=== PATIENT | male | born 1960 | race Caucasian/White ===

== ENCOUNTER 2021-04-09 16:48 | Emergency (ER) | payer MEDICAID ==
[~2021-04-09] VITALS: Ht 188 cm; Wt 79.9 kg
--- NOTE | 2021-04-09 17:42 | PHYS DOC ---
Adult General Chief Complaint Chief Complaint: WEAKNESS/GENERALIZED HPI HPI Patient is a 60-year-old male presenting via POV for weakness and fatigue. This is an acute on chronic issue. States he has been previously residing in [place] where he has been receiving all of his medical care but recently relocated to [facility] to live with his parents. Medical history is most pertinent for stage IV metastatic lung cancer which she reports is non-small cell in etiology. He has a right-sided chest port and has received chemotherapy only with last treatment in October and remains on oral " cancer medication". Presents today as he is been more fatigued than usual with nonspecific chills and difficulty getting warm. He is concerned because last time he felt like this approximately 1 year prior he was found to be anemic and received a total of 5 units pRBCs. States he never received an endoscopy with no obvious blood source found and stated that because was reported to be due to chronic disease. He is unvaccinated against COVID-19 (EMANUEL BYRD DO) Review of Systems Review of Systems Fourteen body systems of review of systems have been reviewed. See HPI for pertinent positives and negative responses, other vega all other systems are negative, non-pertinent or non-contributory (EMANUEL BYRD DO) Allergies Allergies Allergies Coded Allergies Type Severity Reaction Last Updated Verified No Known Drug Allergies 04/09/21 No (EMANUEL BYRD DO) Physical Exam Physical Exam Constitutional: Well developed, thin and appears nourished, no acute distress, non-toxic appearance. HENT: Normocephalic, atraumatic, bilateral external ears normal, oropharynx moist, no oral exudates, nose normal. Eyes: PERRLA, EOMI, conjunctiva normal, no discharge. Neck: Normal range of motion, no tenderness, supple, no stridor. Cardiovascular: Heart rate regular, sinus rhythm, no murmurs rubs or gallops right upper outer chest wall port present Lungs & Thorax: Bilateral breath sounds clear to auscultation Abdomen: Bowel sounds normal, soft, no tenderness, no masses, no pulsatile masses. Nonsurgical abdomen, no peritoneal signs Skin: Warm, dry, no erythema, no rash. Back: No tenderness, no CVA tenderness. Extremities: No tenderness, no cyanosis, no clubbing, ROM intact, no edema. Neurologic: Alert and oriented X 3, grossly normal motor & sensory function, no focal deficits noted. Psychologic: Affect normal, judgement normal, mood normal. (EMANUEL BYRD DO) Current Patient Data Vital Signs Vital Signs Date Time Temp Pulse Resp B/P (MAP) Pulse Ox O2 Delivery O2 Flow Rate FiO2 04/09/21 17:05 98.2 94 18 133/92 (106) 98 Room Air Vital Signs Date Time Temp Pulse Resp B/P (MAP) Pulse Ox O2 Delivery O2 Flow Rate FiO2 04/09/21 20:48 18 98 04/09/21 20:10 102 148/55 (86) Room Air 04/09/21 17:05 98.2 (EMANUEL BYRD DO) EKG EKG [] (EMANUEL BYRD DO) Radiology/Procedures Radiology/Procedures [] (EMANUEL BYRD DO) Heart Score Risk Factors: Risk Factors: DM, Current or recent (<one month) smoker, HTN, HLP, family history of CAD, obesity. Risk Scores: Risk Factors: DM, Current or recent (<one month) smoker, HTN, HLP, family history of CAD, obesity. (EMANUEL BYRD DO) C/O Chest Pain: No (ADRIANNA MOREL MD) Course & Med Decision Making Course & Med Decision Making ABCs unremarkable HPI and physical exam nonconcerning for any emergent or surgical issues Initial work-up started in an unvaccinated against COVID-19 individual presenting with fatigue and lethargy and concern for potential anemia At this time in care, comprehensive signout given to oncoming physician. Please defer to Dr. Morel's documentation regarding future care of patient while in ER setting (EMANUEL BYRD DO) Course & Med Decision Making Patient care handed off to me at checkout pending labs and imaging. Patient is a stage IV lung cancer patient, with leukopenia, anemia and SIRS criteria. Chest x-ray suspect ill-defined bilateral nodular opacities suspicious for infection. Order to complete sepsis work-up on patient and plan to admit. Patient and are here stating that they are from [place], and are leaving soon and would not stay in the hospital. Both myself and the ED nurse had long discussions with family about staying in the hospital for continued work-up as it is indicated. Stated that if he did leave without further treatment and probable admission to the hospital he had a high risk of becoming seriously ill, with worsening symptoms, which could lead to a long hospitalization, ICU stays, disability and . Family was grateful, verbalized understanding and stated that they were just going to go home and go back to [place] where he is getting treated at [facility]. Advised once again that this would probably not be the best course of action and would be AGAINST MEDICAL ADVICE. Gave patient nausea medicine, pain medicine and antibiotics to take at home. Advised on symptom control. Gave strict return return precautions to the ED. (ADRIANNA MOREL MD) Dragon Disclaimer Dragon Disclaimer This electronic medical record was generated, in whole or in part, using a voice recognition dictation system. (EMANUEL BYRD DO) Departure Departure: Impression: Primary Impression: Sepsis Additional Impressions: Lung cancer Leukopenia Anemia Pneumonia Disposition: LEFT AGAINST MEDICAL ADVICE Condition: GUARDED Referrals: PCP,ARRON (PCP) KEVYN SIMMONS MD Patient Instructions: Sepsis, Adult Additional Instructions: Thank you for coming into the emergency department tonight and allowing us to take care of you. Please read the attached information carefully to go back over things we discussed. Please take your antibiotics as prescribed and until gone. Please take your nausea medicine as discussed over the next couple of days to allow oral intake of fluids and food. As we discussed, it was very important that you stay in the emergency department for further evaluation and treatment as you most likely had a blood infection secondary to your pneumonia and given your cancer and immunocompromise state. You and your verbalized understanding and stated you want to go home. We discussed serious complications such as worsening symptoms, worsening illness and infection, return to the hospital and ICU stay, disability and . You and your verbalized understanding of this after discussing this with both the nurse and myself but chose to go home AGAINST MEDICAL ADVICE. Scripts Levofloxacin (LEVOFLOXACIN) 500 Mg Tablet 1 TAB PO DAILY for PNA for 7 Days, #7 TAB Prov: ADRIANNA MOREL MD 04/09/21 Problem Qualifiers EMANUEL BYRD DO Apr 09, 2021 17:42 ADRIANNA MOREL MD Apr 09, 2021 19:43
--- NOTE | 2021-04-09 18:19 | EKG ---
[address] [address] Test Date: 2021-04-09 Test Time: 17:53:20 Pat Name: BALTAZAR PINTO Department: Room: Gender: M Geospatial Specialist: IZZY : 1960 Requested By: EMANUEL BYRD Order Number: [id number] Reading MD: Griffin Malik MD Measurements Intervals [place] Rate: 77 P: 43 KS: 140 QRS: 28 QRSD: 64 T: 68 QT: 362 QTc: 411 Interpretive Statements SINUS RHYTHM Electronically Signed On 04-10-2021 20:42:05 CALCINE FURNACE TENDER by Griffin Malik MD
[2021-04-09 18:42] LABS: BASO % 1 % (0-3); EOS # 0.1 x10^3/uL (0.0-0.7); EOS % 3 % (0-3); HEMATOCRIT 28.8 % (39.0-53.0); HEMOGLOBIN 9.6 g/dL (13.0-17.5); LYMPH % 33 % (24-48); MEAN CORPUSCULAR HEMOGLOBIN 35 pg (25-35); MEAN CORPUSCULAR HGB CONC 33 g/dL (31-37); MEAN CORPUSCULAR VOLUME 104 fL (79-100); MONO # 0.3 x10^3/uL (0.0-1.1); MONO % 10 % (0-9); NEUT # 1.5 x10^3uL (1.8-7.7); NEUT % 53 % (31-73); PLATELET COUNT 186 x10^3/uL (140-400); RED BLOOD COUNT 2.77 x10^6/uL (4.30-5.70); RED CELL DISTRIBUTION WIDTH 15.8 % (11.5-14.5); WHITE BLOOD COUNT 2.9 x10^3/uL (4.0-11.0)
[2021-04-09 18:48] LABS: CALCIUM 7.4 mg/dL (8.5-10.1); CREATININE 1.6 mg/dL (0.7-1.3); GFR 44.3; POTASSIUM 3.9 mmol/L (3.5-5.1)
--- NOTE | 2021-04-09 18:56 | RAD ---
EXAM: XR CHEST 1V 04/09/2021 5:40 PM CLINICAL INDICATION: Chills, fatigue COMPARISON: None TECHNIQUE: AP upright view of the chest FINDINGS: There is a right chest wall port with tip overlying the superior vena cava. The heart is n ormal in size. Lungs are adequately expanded. Suspect ill-defined nodular opacities in the peripheral lungs. No pleural effusion or pneumothorax. Chronic deformity of the left proximal humerus. Degenera tive joint disease of the glenohumeral joints. Old left clavicular fracture. IMPRESSION: Suspect ill-defined bilateral nodular opacities, suspicious for infection. Recommend fol low-up after treatment to ensure resolution. Electronically signed by: Priti Man MD (04/09/2021 6:53 PM) [id number]
[2021-04-09 19:06] LABS: INFLUENZA A PATIENT NEGATIVE (NEGATIVE); INFLUENZA B PATIENT NEGATIVE (NEGATIVE)
[2021-04-09] MEDS ORDERED: LEVO500T9 PO (19:42)
[2021-04-09] MEDS ORDERED: ACETAMINOPHEN/CODEINE 300/30MG 4TABLET STARTPACK. PO ONE (19:45)
[2021-04-09] MEDS ORDERED: oxyCODONE/APAP 5/325 1 TAB TABLET PO ONE (19:45)
[2021-04-09] MEDS ORDERED: ONDANSETRON 4MG ODT 4TABLET STARTPACK. PO ONE (19:45)
[2021-04-09] MEDS ORDERED: ONDANSETRON ODT 4 MG TAB.RAPDIS PO ONE (19:45)
[2021-04-09] MEDS ORDERED: levoFLOXacin 500 MG TABLET PO ONE (19:45)
[2021-04-09 20:10] VITALS: BP 148/55
[2021-04-09 20:28] LABS: C REACTIVE PROTEIN 3.4 mg/L (0-3.3); MAGNESIUM 1.7 mg/dL (1.8-2.4)
== END 2021-04-09 20:10 | disposition left against medical advice (07) ==
LOC: ER 16:48
DX: A41.9 Sepsis, unspecified organism (principal); D72.819 Decreased white blood cell count, unspecified; D64.9 Anemia, unspecified; J18.9 Pneumonia, unspecified organism; C34.90 Malignant neoplasm of unspecified part of unspecified bronchus or lung
CPT/HCPCS: 36415; 71045; 80048; 83735; 84484; 85025; 86140; 93005; 99285; Q0162; 87428

== ENCOUNTER 2021-04-16 19:24 | Emergency (ER) | payer MEDICAID ==
[~2021-04-16] VITALS: Ht 193 cm; Wt 79.0 kg
[~2021-04-16 19:24] MED LIST: LEVO500T9 PO
--- NOTE | 2021-04-16 19:44 | PHYS DOC ---
Past History Additional Past Medical Histor: lung cancer, ascities (ANTOINETTE HERNANDEZ APRN) Past Surgical History: Other Additional Past Surgical Histo: left knee, port placed, multiple ascities drainage (ANTOINETTE HERNANDEZ APRN) Alcohol Use: None (ANTOINETTE HERNANDEZ APRN) Adult General HPI HPI Limited HPI related to patient unable to communicate, HPI given by transporting application architect manager report Patient is a 60-year-old male who presents to the emergency department via EMS with reports patient has been having garbled speech since 1500 today. It is reported patient fell 10 days ago hitting his head, it is uncertain if patient had medical evaluation at that time. Patient is here visiting parents from [place]. Patient has history of lung cancer and is on Xarelto, unknown if other past medical history exists. Patient apparently uses a walker to ambulate. It was noted today that the patient stumbled forward and caught himself with his hands, this was witnessed, it was witnessed he did not hit his head. It was noted at that time patient answered questions and carried on conversations with an comprehensible sounds and speech. It is also reported the patient tested positive for the COVID-19 virus this past Thursday. No other history is known. (ANTOINETTE HERNANDEZ APRN) Review of Systems Review of Systems Limited ROS related to patient incomprehensible sounds, see HPI. (ANTOINETTE HERNANDEZ APRN) Allergies Allergies Allergies Coded Allergies Type Severity Reaction Last Updated Verified No Known Drug Allergies 04/09/21 No (ANTOINETTE HERNANDEZ APRN) Physical Exam Physical Exam Constitutional: Well developed, well nourished, no acute distress, non-toxic appearance. 60-year-old male in no apparent distress. HENT: Normocephalic, atraumatic. Oropharynx moist, pink, no deep tissue infectious process appreciated, bilateral TMs intact, within normal limits, no lymphadenopathy of the head or neck appreciated. No moreno sign, no raccoon eyes. No drooling, no trismus, patient speaking in normal voice tones however making incomprehensible words/sounds. Patient does follow commands. Eyes: Conjunctiva normal, no discharge. Satisfactory 6 cardinal eye movements. Neck: Normal range of motion, no stridor. No midline spinal tenderness. Cardiovascular: No cyanosis appreciated, distal cap refill less than 2 seconds. Heart sounds S1-S2, regular rate and rhythm. Lungs & Thorax: Patient is in no respiratory distress, no audible adventitious lung sounds appreciated. Lung sounds clear to auscultation all lung alas. Abdomen: Nontender, no abnormalities noted. Abdomen flat, no masses, no megaly, normal bowel sounds all 4 quadrants. Skin: Warm, dry, no erythema, no rash. Back: No tenderness, no deformities. Extremities: No tenderness, no cyanosis, no clubbing, ROM intact, no edema. Neurologic: Alert, orientation unable to assess related to patient answering incomprehensible sounds/words, patient does follow commands. Psychologic: Unable to assess psychologic status related to patient answering and incomprehensible sounds, patient does not seem to be upset or become agitated when he does not answer in words it makes sense. Patient does answer yes and no otherwise unable to articulate words. (ANTOINETTE HERNANDEZ APRN) Current Patient Data Lab Results Laboratory Tests Test 04/16/21 19:41 04/16/21 19:54 04/16/21 20:36 04/16/21 20:40 White Blood Count 3.7 x10^3/uL Red Blood Count 2.99 x10^6/uL Hemoglobin 10.3 g/dL Hematocrit 30.8 % Mean Corpuscular Volume 103 fL Mean Corpuscular Hemoglobin 34 pg Mean Corpuscular Hemoglobin Concent 34 g/dL Red Cell Distribution Width 15.3 % Platelet Count 167 x10^3/uL Neutrophils (%) (Auto) 62 % Lymphocytes (%) (Auto) 26 % Monocytes (%) (Auto) 10 % Eosinophils (%) (Auto) 1 % Basophils (%) (Auto) 1 % Neutrophils # (Auto) 2.3 x10^3uL Lymphocytes # (Auto) 1.0 x10^3/uL Monocytes # (Auto) 0.4 x10^3/uL Eosinophils # (Auto) 0.1 x10^3/uL Basophils # (Auto) 0.0 x10^3/uL Prothrombin Time 13.3 SEC Prothromb Time International Ratio 1.3 Activated Partial Thromboplast Time 30 SEC Sodium Level 134 mmol/L Potassium Level 3.8 mmol/L Chloride Level 99 mmol/L Carbon Dioxide Level 26 mmol/L Anion Gap 9 Blood Urea Nitrogen 19 mg/dL Creatinine 1.8 mg/dL Estimated GFR (Cockcroft-Gault) 38.7 BUN/Creatinine Ratio 11 Glucose Level 82 mg/dL Calcium Level 9.0 mg/dL Phosphorus Level 2.4 mg/dL Magnesium Level 1.7 mg/dL Total Bilirubin 0.8 mg/dL Aspartate Amino Transf (AST/SGOT) 24 U/L Alanine Aminotransferase (ALT/SGPT) 21 U/L Alkaline Phosphatase 102 U/L Troponin I High Sensitivity 9 ng/L NV-[id number]-Type Natriuretic Peptide 213 pg/mL Total Protein 6.1 g/dL Albumin 2.6 g/dL Albumin/Globulin Ratio 0.7 Lipase 220 U/L Glucose (Fingerstick) 77 mg/dL Ethyl Alcohol Level < 10 mg/dL Acetone Level Neg Urine Collection Type Unknown Urine Color Yellow Urine Clarity Clear Urine pH 8.0 Urine Specific Colbert 1.020 Urine Protein Neg Urine Glucose (UA) Neg mg/dL Urine Ketones (Stick) Neg mg/dL Urine Blood Neg Urine Nitrite Neg Urine Bilirubin Neg Urine Urobilinogen Dipstick 0.2 mg/dL Urine Leukocyte Esterase Neg Urine RBC 0 /HPF Urine WBC Rare /HPF Urine Squamous Epithelial Cells Occ /LPF Urine Bacteria 0 /HPF Ammonia 16 mcmol/L Urine Opiates Screen Pos Urine Methadone Screen Neg Urine Barbiturates Neg Urine Phencyclidine Screen Neg Urine Amphetamine/Methamphetamine Neg Urine Benzodiazepines Screen Neg Urine Cocaine Screen Neg Urine Cannabinoids Screen Pos Urine Ethyl Alcohol Neg Current Medications Medications (Trade) Dose Ordered Sig/Ricki Route PRN Reason Start Time Stop Time Status Last Admin Dose Admin Iohexol (Omnipaque 350 Mg/ml) 100 ml 1X ONCE IV 04/16/21 19:45 04/16/21 19:49 DC 04/16/21 20:20 (ANTOINETTE HERNANDEZ APRN) EKG EKG EKG performed at 2023 by ED nursing staff shows a normal sinus rhythm with leftward axis deviation no other ectopy appreciated, heart rate 83 bpm, MN interval 0.144, QTc interval 0.464, no acute STEMI, no ACS, no acute ischemia appreciated, EKG interpreted by ED attending physician Dr. Morel. (ANTOINETTE HERNANDEZ APRN) Radiology/Procedures Radiology/Procedures REASON: Altered mental status, short of air, COVID PROCEDURE: PORTABLE CHEST 1V Study: XR CHEST 1V Indication: Altered mental status. Shortness of air. Covid. Comparison: 04/09/2019 Findings: Right chest wall Port-A-Cath terminates within the SVC. No confluent airspace infiltrate has developed in the interim. No pneumothorax. The costophrenic angles are able to be delineated. Unchanged cardiomediastinal silhouette and joseph. Redemonstration of diffuse sclerotic metastatic disease. Impression: There are findings which could be related to an atypical/viral pneumonia but would be subtle and have not worsened from 04/09/2021. A left-sided pleural eff usion seen on the same day CT angiogram is essentially occult by radiography. Diffuse sclerotic metastatic disease which is known. Electronically signed by: JOCY LEIVA MD (04/16/2021 8:39 PM) [facility] STAT[facility]: REG ER ORD. PHYSICIAN: ANTOINETTE HERNANDEZ APRN REASON: Altered mental status expressive aphasia PROCEDURE: CT HEAD WO CONTRAST CT HEAD/BRAIN WO History: Achalasia. Rule out stroke. Comparison: None. Technique: Noncontrast CT imaging was performed of the head. Findings: No intracranial hemorrhage. No mass effect. No hydrocephalus. No evidence of acute territorial infarction. Hypodense foci in the left frontal subcortical white matter. Imaged orbits are unremarkable. Imaged paranasal sinuses and mastoid air cells are clear. Heterogeneous sclerotic lesions throughout the calvarium and skull base, largest measuring 1.2 cm of the clivus. Impression: 1. No intracranial hemorrhage, herniation or hydrocephalus. No territorial infarction. 2. Foci of hypodensity in the left frontal subcortical white matter may represent age-indeterminate lacunar infarcts. In the setting of metastatic disease these could represent areas of edema surrounding metastasis. 3. Heterogeneous sclerotic foci throughout the calvarium and skull base concerning for osseous metastatic disease. Findings discussed with ANTOINETTE HERNANDEZ APRN at 04/16/2021 8:09 PM. REASON: Altered mental status expressive aphasia Omni 350 75cc PROCEDURE: CT ANGIOGRAPHY HEAD AND NECK Exam: CTA head and neck INDICATION: Altered mental status TECHNIQUE: Sequential axial images through the head and neck obtained following the administration of 75 mL of Isovue-370 IV contrast. Sagittal and coronal reformatted images were reconstructed from the axial data and reviewed. Exposure: One or more of the following in the visualized dose reduction techniques were utilized for this examination: 1. Automated exposure control 2. Adjustment of the MA and/or KV according to patient size 3. Use of iterative of reconstructive technique Comparisons: 04/16/2021 FINDINGS: CTA NECK: Right common carotid artery is patent without evidence of stenosis, occlusion or aneurysm. Mild plaque at the origin of the right internal carotid artery without significant stenosis. Left common carotid artery is patent without evidence of stenosis, occlusion or aneurysm. Cervical segment of the left internal carotid artery is patent without evidence of stenosis, occlusion or aneurysm. Right vertebral artery is patent to the basilar confluence without evidence of stenosis, occlusion or aneurysm. Left vertebral artery is patent to basilar confluence without evidence of stenosis, occlusion or aneurysm. Moderate-sized left pleural effusion. CTA HEAD: Minimal calcified plaque at the cavernous segment of the right internal carotid artery without significant stenosis. Right MCA is patent. Right JAQUI is patent. Minimal calcified plaque at the cavernous segment of the left internal carotid artery without significant stenosis. Left MCA is patent. Left JAQUI is patent. Basilar artery is patent without evidence of stenosis, occlusion or aneurysm. [employer] are patent bilaterally. IMPRESSION: 1. No large vessel occlusion. 2. Minimal calcified plaque cavernous evidence of the internal carotid arteries bilaterally without significant stenosis. 3. Mild plaque at the origin of the right internal carotid artery causing less than 50% stenosis. (ANTOINETTE HERNANDEZ APRN) Heart Score C/O Chest Pain: No Risk Factors: Risk Factors: DM, Current or recent (<one month) smoker, HTN, HLP, family history of CAD, obesity. Risk Scores: Risk Factors: DM, Current or recent (<one month) smoker, HTN, HLP, family history of CAD, obesity. (ANTOINETTE HERNANDEZ APRN) Course & Med Decision Making Course & Med Decision Making Pertinent Labs and Imaging studies reviewed. (See chart for details) 60-year-old male, vital signs reviewed, presents to the emergency department concerning altered mental status with garbled speech since 1500 today. The patient is reported Covid positive. Physical examination concerning for acute stroke, will order CT head without contrast, CTA head and neck if no bleed, CBC, CMP, EKG, urinalysis assay, urine drug screen, alcohol level, ammonia level, troponin I high-sensitivity, NT proBNP. CT head without contrast concerning for lacunar infarcts versus brain mets, CTA head and neck nonconcerning for large vessel occlusion. Called and discussed patient case and ED work-up with [facility] neurology specialist Dr. Morse who agrees patient's case warrants admission to the hospital at [facility], agreed to accept patient in consult, requested [facility] hospitalist admit patient for neurology consult. Called and discussed patient case and ED work-up with inpatient management physician Dr. Ivan at [facility] who agrees patient's case warrants admission to the hospital. Patient's mother is now at bedside, ED attending physician Dr. Morel reviewed patient's case with patient's mother at bedside, discussed transfer to [facility] with patient patient's mother who agrees to transfer for ongoing medical evaluation and treatment. Patient's mother reports the patient has recently moved up here from [place] to live with his parents, has non-small cell lung cancer with liver and brain mets, is taking an oral cancer medication, sees [facility] cancer physicians. Is not vaccinated against a COVID-19 virus. Tested positive for the COVID-19 virus this past Thursday. EMTALA transfer forms reviewed and signed, patient awaiting ambulance transfer to [facility]. (ANTOINETTE HERNANDEZ APRN) Course & Med Decision Making Did not see or evaluate patient. Did not discuss patient with ACOUSTIC WARFARE ANALYST. Agree with ACOUSTIC WARFARE ANALYST's work-up and disposition per note. (ADRIANNA MOREL MD) Dragon Disclaimer Dragon Disclaimer This electronic medical record was generated, in whole or in part, using a voice recognition dictation system. (ANTOINETTE HERNANDEZ APRN) NIH Stroke Scale: NIH Stroke Scale Response (Comments) Value Level of Consciousness: 0 Alert/Responsive 0 LOC Questions: 2 Answers neither correct 2 LOC Commands: 0 Performs both tasks 0 Best Gaze: 0 Normal 0 Visual: 0 No visual loss 0 Facial Palsy: 2 Partial paralysis 2 Motor - Left Arm 0 No drift 0 Motor - Right Arm 0 No drift 0 Motor - Left Leg 0 No drift 0 Motor: Right Leg 0 No drift 0 Limb Ataxia: 1 One limb 1 Sensory: 0 No loss 0 Best Language: 2 Severe aphasia 2 Dysathria: 2 Severe 2 Extinction and Inattention: 0 Normal 0 Total 9 Departure Departure: Impression: Primary Impression: COVID-19 virus infection Additional Impressions: Expressive aphasia History of lung cancer History of fall Disposition: 02 SHORT TERM HOSPITAL (Patient transferred to [facility], Dr. Marzena kaur, Dr. Lito kaur for neurology) Condition: GUARDED Referrals: PCP,NO (PCP) Problem Qualifiers ANTOINETTE HERNANDEZ APRN Apr 16, 2021 19:44 ADRIANNA MOREL MD Apr 16, 2021 21:47
[2021-04-16] MEDS ORDERED: IOHEXOL 350 MG/ML 100 ML VIAL. IV ONE (19:45)
[2021-04-16 20:06] LABS: BASO % 1 % (0-3); EOS # 0.1 x10^3/uL (0.0-0.7); EOS % 1 % (0-3); HEMATOCRIT 30.8 % (39.0-53.0); HEMOGLOBIN 10.3 g/dL (13.0-17.5); LYMPH % 26 % (24-48); MEAN CORPUSCULAR HEMOGLOBIN 34 pg (25-35); MEAN CORPUSCULAR HGB CONC 34 g/dL (31-37); MEAN CORPUSCULAR VOLUME 103 fL (79-100); MONO # 0.4 x10^3/uL (0.0-1.1); MONO % 10 % (0-9); NEUT # 2.3 x10^3uL (1.8-7.7); NEUT % 62 % (31-73); PLATELET COUNT 167 x10^3/uL (140-400); RED BLOOD COUNT 2.99 x10^6/uL (4.30-5.70); RED CELL DISTRIBUTION WIDTH 15.3 % (11.5-14.5); WHITE BLOOD COUNT 3.7 x10^3/uL (4.0-11.0)
[2021-04-16 20:12] LABS: CREATININE 1.8 mg/dL (0.7-1.3); GFR 38.7; POTASSIUM 3.8 mmol/L (3.5-5.1)
--- NOTE | 2021-04-16 20:16 | RAD ---
CT HEAD/BRAIN WO History: Achalasia. Rule out stroke. Comparison: None. Technique: Noncontrast CT imaging was performed of the head. Findings: No intracranial hemorrhage. No mass effect. No hydrocephalus. No evidence of acute territorial infar ction. Hypodense foci in the left frontal subcortical white matter. Imaged orbits are unremarkable. Imaged paranasal sinuses and mastoid air cells are clear. Heterogeneo us sclerotic lesions throughout the calvarium and skull base, largest measuring 1.2 cm of the clivus. Impression: 1. No intracranial hemorrhage, herniation or hydrocephalus. No territorial infarction. 2. Foci of hypodensity in the left frontal subcortical white matter may represent age-indeterminate lacunar infarcts. In the setting of metastatic disease these could represent areas of edema surroundi ng metastasis. 3. Heterogeneous sclerotic foci throughout the calvarium and skull base concerning for osseous metas tatic disease. Findings discussed with ANTOINETTE HERNANDEZ APRN at 04/16/2021 8:09 PM. FOR INTERNAL CODING PURPOSES RESULT CODE: (C) ----- Exposure: One or more of the following individualized dose reduction techniques were utilized for thi s examination: 1. Automated exposure control 2. Adjustment of the mA and/or kV according to patient size 3. Use of iterative reconstruction technique. Electronically signed by: Rufino Obregon MD (04/16/2021 8:13 PM) [facility]
[2021-04-16 20:25] LABS: ALBUMIN 2.6 g/dL (3.4-5.0); ALBUMIN/GLOBULIN RATIO 0.7 (1.0-1.7); MAGNESIUM 1.7 mg/dL (1.8-2.4); PHOSPHORUS 2.4 mg/dL (2.6-4.7); TOTAL BILIRUBIN 0.8 mg/dL (0.2-1.0); TOTAL PROTEIN 6.1 g/dL (6.4-8.2)
--- NOTE | 2021-04-16 20:40 | RAD ---
Exam: CTA head and neck INDICATION: Altered mental status TECHNIQUE: Sequential axial images through the head and neck obtained following the administration of 75 mL of Isovue-370 IV contrast. Sagittal and coronal reformatted images were reconstructed from the axial data and reviewed. Exposure: One or more of the following in the visualized dose reduction techniques were utilized for this examination: 1. Automated exposure control 2. Adjustment of the MA and/or KV according to patient size 3. Use of iterative of reconstructive technique Comparisons: 04/16/2021 FINDINGS: CTA NECK: Right common carotid artery is patent without evidence of stenosis, occlusion or aneurysm. Mild plaqu e at the origin of the right internal carotid artery without significant stenosis. Left common carotid artery is patent without evidence of stenosis, occlusion or aneurysm. Cervical se gment of the left internal carotid artery is patent without evidence of stenosis, occlusion or aneury sm. Right vertebral artery is patent to the basilar confluence without evidence of stenosis, occlusion or aneurysm. Left vertebral artery is patent to basilar confluence without evidence of stenosis, occlusion or aneu rysm. Moderate-sized left pleural effusion. CTA HEAD: Minimal calcified plaque at the cavernous segment of the right internal carotid artery without signif icant stenosis. Right MCA is patent. Right JAQUI is patent. Minimal calcified plaque at the cavernous segment of the left internal carotid artery without signifi cant stenosis. Left MCA is patent. Left JAQUI is patent. Basilar artery is patent without evidence of stenosis, occlusion or aneurysm. casket assembler metal are patent bilater ally. IMPRESSION: 1. No large vessel occlusion. 2. Minimal calcified plaque cavernous evidence of the internal carotid arteries bilaterally without significant stenosis. 3. Mild plaque at the origin of the right internal carotid artery causing less than 50% stenosis. FOR INTERNAL CODING PURPOSES Critical result: Findings discussed with ANTOINETTE HERNANDEZ APRN at 04/16/2021 8:35 PM. RESULT CODE: (C) Electronically signed by: Yudy Costa MD (04/16/2021 8:37 PM) [facility]
--- NOTE | 2021-04-16 20:42 | RAD ---
Study: XR CHEST 1V Indication: Altered mental status. Shortness of air. Covid. Comparison: 04/09/2019 Findings: Right chest wall Port-A-Cath terminates within the SVC. No confluent airspace infiltrate has developed in the interim. No pneumothorax. The costophrenic angl es are able to be delineated. Unchanged cardiomediastinal silhouette and joseph. Redemonstration of diffuse sclerotic metastatic disease. Impression: There are findings which could be related to an atypical/viral pneumonia but would be subtle and have not worsened from 04/09/2021. A left-sided pleural effusion seen on the same day CT angiogram is esse ntially occult by radiography. Diffuse sclerotic metastatic disease which is known. Electronically signed by: JOCY LEIVA MD (04/16/2021 8:39 PM) [facility]
[2021-04-16 21:10] LABS: BACTERIA,URINE 0 /HPF (0-FEW); BARBITURATES NEG (NEG); BENZODIAZEPINES NEG (NEG); BILIRUBIN,URINE NEG (NEG); CANNABINOIDS POS (NEG); CLARITY,URINE CLEAR; COCAINE NEG (NEG); COLOR,URINE YELLOW; GLUCOSE,URINE NEG (NEG); METHADONE NEG (NEG); NITRITE,URINE NEG (NEG); OPIATES POS (NEG); PHENCYCLIDINE NEG (NEG); RBC,URINE 0 /HPF (0-2); SQUAMOUS EPITHELIAL CELL,UR OCC /LPF; UROBILINOGEN,URINE 0.2 mg/dL (0.2 mg/dL); WBC,URINE RARE /HPF (0-4)
[2021-04-16 21:11] LABS: AMPHETAMINE/METHAMPHETAMINE NEG (NEG)
[2021-04-16 22:02] VITALS: BP 120/91
--- NOTE | 2021-04-16 23:12 | EKG ---
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
== END 2021-04-16 22:45 | disposition short-term general hospital (02) ==
LOC: ER 19:24
DX: U07.1 COVID-19 (principal); Z85.118 Personal history of other malignant neoplasm of bronchus and lung; Z91.81 History of falling; Z79.01 Long term (current) use of anticoagulants
CPT/HCPCS: 36415; 70450; 70496; 70498; 71045; 80053; 80307; 81001; 82010; 82140; 82947; 83690; 83735; 83880; 84100; 84484; 85025; 85610; 85730; 93005; 96374; 99285; G0480; J3010; Q9967

== ENCOUNTER 2021-04-21 20:21 | Inpatient (IN) | payer MEDICAID ==
[~2021-04-21] VITALS: Ht 188 cm; Wt 74.7 kg
--- NOTE | 2021-04-21 20:29 | PHYS DOC ---
Past History Past Medical History: Anemia, Cancer, CVA, Prostatitis, TIA Additional Past Medical Histor: lung cancer, ascities Past Surgical History: Other Additional Past Surgical Histo: left knee, port placed, multiple ascities drainage Alcohol Use: None General Adult HPI: HPI: - Pt.- currently very limited speech, does seem to under stands . Shakes head yes and no. " " No complaints of pain. " "Increased generalized weakness." "Falling" Patient is a 60 year old male who presents with altered mental status and expressive aphasia. Pt. more weak the past 24 hrs. Pt. reportedly altered since yesterday noon. Patient lives with parents. Reportedly patient had been having episodes of expressive aphasia . This has been somewhat persistent the past two weeks, with episodes of garbled speech . Patient reportedly has been using walker but had a fall yesterday. Patient does have a history of lung cancer with metastatic changes as well as liver failure with ascites. Patient also has a history of metastatic prostate cancer. Patient reportedly has had 2 courses of chemotherapy while he was living in [facility]. Patient came up here approximately a month ago to visit with parents. Patient reportedly seen here on 04/16/2021 was diagnosed with Covid sequela. Patient has history of COVID-19 in 2020 and had a reoccurrence this year. Since Thursday of 04/10. Patient does use a walker to ambulate. Has had history of recent falls 1 on Thursday of 04/06 striking his head. Patient has had varying levels of alertness or response to questions over the past several days. Reportedly patient was a ble to carry on a conversation with comprehensible sounds and speech prior to 2 weeks ago. Patient presents today for evaluation because of decreased speech and responsiveness since 04/20 at 12 00at noon. Patient currently limited verbal response but can answer questions to yes and no,. His mother states but seems understands questions and communicates to her with yes, no to questions. Patient currently responds to request to move all extremities. Patient denies any pain. Patient denies any current fever or chills. Patient reported he has had other falls since evaluation on 04/16. His Mother had hm taken to hospital today because she was worried he had brain injury from fall yesterday, but had not significant change in mental status other than continue expressive aphasia. Per paramedics the elderly family members that take care of him not not very good historians. Reportedly is the same level consciousness as he was on 04/20 at noon. Patient recently discharged [facility] after evaluation by Dr. Schroeder and admission under Dr. Ivan. Patient had been recommended to get an MRI during that admission but patient refused. Patient reportedly is visiting here from [place]. Patient is currently living with his parents.. 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 Patient also has history of prostate cancer with metastatic spread. Patient is on oral cancer medications through [facility] and [facility].. Patient did not receive vaccination for COVID- 19. His evaluation at our facility on 04/16/2021 showed a continued positive Covid te sting. Patient was transferred to [facility] with a diagnosis of expressive aphasia metastatic small cell lung cancer and history of falls. Patient did have findings on his chest x-ray at that time it appeared to be atypical viral pneumonia. Overall presentation was unchanged from 04/09/2021. At that time he also had a pleural effusion which is unchanged. Appears to have diffuse metastatic disease. CT at that time showed no intercranial intracranial hemorrhage, herniation or hydrocephalus. No territorial infarcts. Did have findings of lacunar infarcts of unknown determined age. There was some suspect that he had metastatic disease causing some of the findings on CT. Did have sclerotic foci throughout the skull felt to be a concern for metastatic disease to the bone. Patient did receive a CTA which showed no evidence of carotid stenosis or occlusion or aneurysm. Did have mild plaquing at the origin of the right internal carotid artery. Right MCA was patent. Left MCA is patent. Basi lar artery without evidence of stenosis or occlusion or aneurysm. Records of patient's admission at [facility] and evaluation are currently not immediately available. Patient on his [facility] and admission was recommended to have an MRI which he eventually refused. Mother advised she would come to ED tomorrow. Stated his currently changes are not new in last 24 hrs. The jesse ent's mother advises he never smoked or used alcohol. 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 Review of Systems: Review of Systems: Constitutional: Denies fever or chills Eyes: Denies change in visual acuity HENT: Denies nasal congestion or sore throat Respiratory: Denies cough or shortness of breath Cardiovascular: Denies chest pain or edema GI: Denies abdominal pain, nausea, vomiting, bloody stools or diarrhea : Denies dysuria Musculoskeletal: Acknowledges some back pain or joint pain-but no current pain Integument: Denies rash Neurologic: Denies headache, focal weakness or sensory changes . Patient acknowledges he is having trouble speaking. Patient acknowledges he has increased generalized weakness Endocrine: Denies polyuria or polydipsia Lymphatic: Denies swollen glands Psychiatric: Acknowledge. depressive thoughts Family History: Family History: Not currently available Current Medications: Current Meds: See nursing for home meds Allergies: Allergies: Allergies Coded Allergies Type Severity Reaction Last Updated Verified No Known Drug Allergies 04/09/21 No Physical Exam: PE: Constitutional: no acute distress, non-toxic appearance. [] HENT: Normocephalic, atraumatic, bilateral external ears normal, oropharynx dry, no oral exudates, nose normal. [] Eyes: PERRLA, EOMI, conjunctiva normal, no discharge. [] Neck: Normal range of motion, no tenderness, supple, no stridor. [] Cardiovascular: Tachycardia heart rate regular rhythm, no murmur [] Lungs & Thorax: Bilateral breath sounds "apex of scattered wheezes some basilar crackles on auscultation [. The patient has] more crackles on left base. Port on R.t Chest wall. Abdomen: Bowel sounds normal, soft, no tenderness, no masses, no pulsatile masses. [] Skin: Warm, dry, no erythema, no rash. Poor turgor Back: No tenderness, no CVA tenderness. [] Extremities: No tenderness, no cyanosis, no clubbing, ROM intact, no edema. [] Neurologic: Appears alert,, does move extremities on request, does appear to have distal sensory,, does have some generalized weaknesses. Patient did have difficulty in assisting in his movements and transfers. Patient does appear to have fairly dense expressive aphasia. Psychologic: Affect depressed, EKG: EKG: [] My interpretation EKG shows a sinus rhythm at 96 bpm lower limb voltage. No findings acute STEMI or contralateral changes. Time of EKG is 2039 hrs. Radiology/Procedures: Radiology/Procedures: [address] [address] IMAGING REPORT Signed PATIENT: BALTAZAR PINTO ACCOUNT: [id number] : 1960 LOCATION: ER AGE: 60 SEX: M EXAM STATUS: REG ER ORD. PHYSICIAN: TRACY MONTES MD REASON: Fall, hit head, headache, neck pain PROCEDURE: CT HEAD AND CERVICAL SPINE WO CT brain without contrast, CT C-spine without contrast HISTORY: Fall, head trauma, headache, neck pain CT brain CT scan the brain was done without contrast. Sinuses are clear. A skull fracture is not identified. There is atrophy. There is no intracranial hemorrhage or subdural hematoma. There is no mass effect or shift of the midline. There is decreased density in the white matter from chronic microvascular changes although old white matter lacunar infarcts are possible. The pattern is unchanged from the prior study. IMPRESSION: 1. Atrophy and chronic white matter changes. 2. No intracranial hemorrhage or acute CVA noted. End impression CT cervical spine Axial CT images were obtained through the cervical spine. Sagittal and coronal reconstructed images were reviewed. There is linear diffuse blastic changes in the bones consistent with diffuse metastatic prostate cancer. An acute C-spine fracture is not identified. There is disc space narrowing and spurring at C5-6 and C6-7. There is a left pleural effusion. IMPRESSION: 1. Diffuse bony metastatic disease consistent with prostate cancer. 2. No acute C-spine fracture. 3. Left pleural effusion. PQRS Compliance Statement: One or more of the following individualized dose reduction techniques were utilized for this examination: 1. Automated exposure control 2. Adjustment of the mA and/or kV according to patient size 3. Use of iterative reconstruction technique Electronically signed by: Aquiles Meyer MD (04/21/2021 8:51 PM) [facility] DICTATED AND SIGNED BY: AQUILES MEYER MD DATE: 04/21/212039 CC: TRACY MONTES MD; PCP,NO ~MTH0 0 [][address] [address] IMAGING REPORT Signed PATIENT: BALTAZAR PINTO ACCOUNT: [id number] : 1960 LOCATION: ER AGE: 60 SEX: M EXAM STATUS: REG ER ORD. PHYSICIAN: TRACY MONTES MD REASON: falling, weakness, chest pain PROCEDURE: PORTABLE CHEST 1V AP chest. HISTORY: Fall, weakness, chest pain AP view was taken of the chest. There are blastic changes from diffuse bilateral metastatic prostate cancer. There is a left pleural effusion better seen on the CT C-spine. Heart is normal in size. Right Port-A-Cath is in good position. There are no definite infiltrates. IMPRESSION: 1. Left pleural effusion. 2. Diffuse blastic metastatic prostate cancer. 3. No acute infiltrates. Electronically signed by: Aquiles Meyer MD (04/21/2021 8:56 PM) [facility] DICTATED AND SIGNED BY: AQUILES MEYER MD DATE: 04/21/212054 CC: TRACY MONTES MD; PCP,NO ~MTH0 0 Heart Score: C/O Chest Pain: N/A HEART Score for Chest Pain: HEART Score for Chest Pain Response (Comments) Value History Slighlty/Non-Suspicious 0 ECG Normal 0 Age >45 - < 65 1 Risk Factors 1 or 2 Risk Factors 1 Troponin < Normal Limit 0 Total 2 Risk Factors: Risk Factors: DM, Current or recent (<one month) smoker, HTN, HLP, family history of CAD, obesity. Risk Scores: Score 0 - 3: 2.5% MACE over next 6 weeks - Discharge Home Score 4 - 6: 20.3% MACE over next 6 weeks - Admit for Clinical Observation Score 7 - 10: 72.7% MACE over next 6 weeks - Early Invasive Strategies Course & Med Decision Making: Course & Med Decision Making Pertinent Labs and Imaging studies reviewed. (See chart for details) Discussed presentation, testing and treatment plan with Dr. Dee, will accept pt in transfer to [facility] or Admission here. Currently will hydrate pt. Neuro checks. Get records from [facility] in [facility] and [facility] hospital records. Impression: 1. Expressive aphasia 2. Generalized weakness/ Falling 3. Dehydration 4. Macrocytic Anemia Hgb 10.6/ MCV 104 5. Elevated D- dimer 5.65 6. C-Reactive Elevated 15.,4 7. Elevated Creat. 1.8- Renal insufficiency 8. Hx. of Small Cell Lung Cancer-metastatic Stage IV 9. Hx. of Metastatic Prostate Cancer Stage IV 10.Hx. Ascities 11. Hx of COVID infection 2020, and recurrent Infection + Testing this Month. ( Hx. never received vaccination after first infection) [] Dragon Disclaimer: Dragon Disclaimer: This electronic medical record was generated, in whole or in part, using a voice recognition dictation system. Departure Departure: Referrals: PCP,NO (PCP) [place] Disclaimer This chart was dictated in whole or in part using Voice Recognition software in a busy, high-work load, and often noisy Emergency Department environment. It may contain unintended and wholly unrecognized errors or omissions. Dragon Disclaimer This chart was dictated in whole or in part using Voice Recognition software in a busy, high-work load, and often noisy Emergency Department environment. It may contain unintended and wholly unrecognized errors or omissions. TRACY MONTES MD Apr 21, 2021 20:29
--- NOTE | 2021-04-21 20:53 | RAD ---
CT brain without contrast, CT C-spine without contrast HISTORY: Fall, head trauma, headache, neck pain CT brain CT scan the brain was done without contrast. Sinuses are clear. A skull fracture is not identified. T here is atrophy. There is no intracranial hemorrhage or subdural hematoma. There is no mass effect or shift of the midline. There is decreased density in the white matter from chronic microvascular wu ges although old white matter lacunar infarcts are possible. The pattern is unchanged from the prior study. IMPRESSION: 1. Atrophy and chronic white matter changes. 2. No intracranial hemorrhage or acute CVA noted. End impression CT cervical spine Axial CT images were obtained through the cervical spine. Sagittal and coronal reconstructed images w ere reviewed. There is linear diffuse blastic changes in the bones consistent with diffuse metastatic prostate cancer. An acute C-spine fracture is not identified. There is disc space narrowing and spur ring at C5-6 and C6-7. There is a left pleural effusion. IMPRESSION: 1. Diffuse bony metastatic disease consistent with prostate cancer. 2. No acute C-spine fracture. 3. Left pleural effusion. PQRS Compliance Statement: One or more of the following individualized dose reduction techniques were utilized for this examinat ion: 1. Automated exposure control 2. Adjustment of the mA and/or kV according to patient size 3. Use of iterative reconstruction technique Electronically signed by: Aquiles Meyer MD (04/21/2021 8:51 PM) [facility]
--- NOTE | 2021-04-21 20:58 | RAD ---
AP chest. HISTORY: Fall, weakness, chest pain AP view was taken of the chest. There are blastic changes from diffuse bilateral metastatic prostate cancer. There is a left pleural effusion better seen on the CT C-spine. Heart is normal in size. Righ t Port-A-Cath is in good position. There are no definite infiltrates. IMPRESSION: 1. Left pleural effusion. 2. Diffuse blastic metastatic prostate cancer. 3. No acute infiltrates. Electronically signed by: Aquiles Meyer MD (04/21/2021 8:56 PM) [facility]
[2021-04-21] MEDS ORDERED: IV RINGERS SOLUTION,LACTATED 1,000 ML IV SCH (21:00)
--- NOTE | 2021-04-21 21:03 | EKG ---
[address] [address] Test Date: 2021-04-21 Test Time: 20:39:40 Pat Name: BALTAZAR PINTO Department: Room: Gender: Want Ad Clerk: 4 : 1960 Requested By: TRACY MONTES Order Number: [id number] Reading MD: Jeff Merritt Measurements Intervals [place] Rate: 96 P: 51 [place]: 136 QRS: 28 QRSD: 72 T: 59 QT: 368 QTc: 472 Interpretive Statements SINUS RHYTHM LOW LIMB LEAD VOLTAGE Electronically Signed On 04-23-2021 12:47:52 SAFE TECHNICIAN by Jeff Merritt
[2021-04-21 21:05] LABS: BASO % 0 % (0-3); EOS % 1 % (0-3); HEMATOCRIT 31.6 % (39.0-53.0); HEMOGLOBIN 10.6 g/dL (13.0-17.5); LYMPH % 23 % (24-48); MEAN CORPUSCULAR HEMOGLOBIN 35 pg (25-35); MEAN CORPUSCULAR HGB CONC 34 g/dL (31-37); MEAN CORPUSCULAR VOLUME 104 fL (79-100); MONO # 0.4 x10^3/uL (0.0-1.1); MONO % 9 % (0-9); NEUT # 2.9 x10^3uL (1.8-7.7); NEUT % 67 % (31-73); PLATELET COUNT 193 x10^3/uL (140-400); RED BLOOD COUNT 3.05 x10^6/uL (4.30-5.70); RED CELL DISTRIBUTION WIDTH 15.8 % (11.5-14.5); WHITE BLOOD COUNT 4.4 x10^3/uL (4.0-11.0)
[2021-04-21 21:17] LABS: CALCIUM 9.5 mg/dL (8.5-10.1); CREATININE 1.8 mg/dL (0.7-1.3); GFR 38.7; POTASSIUM 4.5 mmol/L (3.5-5.1)
[2021-04-21 21:20] LABS: INFLUENZA A PATIENT NEGATIVE (NEGATIVE); INFLUENZA B PATIENT NEGATIVE (NEGATIVE)
[2021-04-21 21:31] LABS: ALBUMIN 2.9 g/dL (3.4-5.0); C REACTIVE PROTEIN 15.4 mg/L (0-3.3); DIRECT BILIRUBIN 0.3 mg/dL (0.0-0.2); MAGNESIUM 1.9 mg/dL (1.8-2.4); TOTAL BILIRUBIN 1.6 mg/dL (0.2-1.0)
[2021-04-21 21:47] LABS: BGAS PH 7.48 (7.35-7.46)
[2021-04-21] MEDS ORDERED: ASPIRIN 325 MG TABLET PO ONE (23:45)
[2021-04-21] MEDS ORDERED: ENOXAPARIN ** NOTE DOSE ** SYRINGE SQ ONE (23:45)
[2021-04-22] MEDS ORDERED: IV RINGERS SOLUTION,LACTATED 1,000 ML IV ONE
[2021-04-22 00:36] LABS: BARBITURATES NEG (NEG); BENZODIAZEPINES NEG (NEG); CANNABINOIDS POS (NEG); COCAINE NEG (NEG); METHADONE NEG (NEG); OPIATES POS (NEG); PHENCYCLIDINE NEG (NEG)
[2021-04-22 00:44] LABS: BILIRUBIN,URINE NEG (NEG); CLARITY,URINE CLEAR; COLOR,URINE YELLOW; GLUCOSE,URINE NEG (NEG)
[2021-04-22 00:45] LABS: AMPHETAMINE/METHAMPHETAMINE NEG (NEG); BACTERIA,URINE FEW /HPF (0-FEW); NITRITE,URINE NEG (NEG); RBC,URINE 0 /HPF (0-2); UROBILINOGEN,URINE 0.2 mg/dL (0.2 mg/dL); WBC,URINE OCC /HPF (0-4)
[2021-04-22] MEDS ORDERED: ONDANSETRON PF 4 MG/2 ML VIAL. IVP PRN (01:00)
[2021-04-22] MEDS ORDERED: ACETAMINOPHEN 325 MG TABLET PO PRN (01:00)
[2021-04-22] MEDS: IV RINGERS SOLUTION,LACTATED 1,000 ML IV SCH ×4 (06:40→21:32)
[2021-04-22] MEDS: IPRATRPIUM/ALBUTEROL 0.5/2.5MG 3 ML NEBU. NEB SCH ×4 (06:43→16:19)
--- NOTE | 2021-04-22 07:35 | RAD ---
Bilateral Lower Extremity Venous Doppler: Reason for examination: Elevated d-dimer, edema, history metastatic cancer The study was limited. Patient has altered mental status and was moving throughout the entire exam. The lower extremity venous systems bilaterally were evaluated from the common femoral and greater sap henous veins distally to the calf veins with grayscale imaging, color-flow imaging and spectral leonor sis. There is normal blood flow without deep venous thrombosis. There is normal response of the venous sys tems to compression and augmentation. Calf veins were not visualized. Impression: 1. Somewhat limited study, no definite deep venous thrombosis from the femoral through the popliteal veins. 2. Calf veins not notified. Electronically signed by: Aquiles Meyer MD (04/22/2021 7:33 AM) [id number]
[2021-04-22 12:13] VITALS: BP 147/84
[2021-04-22 14:55] VITALS: BP 112/72
[2021-04-22 18:20] LABS: HEMATOCRIT 31.6 % (39.0-53.0); HEMOGLOBIN 10.3 g/dL (13.0-17.5); RED BLOOD COUNT 2.98 x10^6/uL (4.30-5.70); RED CELL DISTRIBUTION WIDTH 16.1 % (11.5-14.5); WHITE BLOOD COUNT 3.4 x10^3/uL (4.0-11.0)
[2021-04-22 18:28] LABS: ALBUMIN 2.6 g/dL (3.4-5.0); ALBUMIN/GLOBULIN RATIO 0.7 (1.0-1.7); CALCIUM 9.1 mg/dL (8.5-10.1); CREATININE 1.6 mg/dL (0.7-1.3); GFR 44.3; POTASSIUM 3.6 mmol/L (3.5-5.1); TOTAL BILIRUBIN 1.1 mg/dL (0.2-1.0); TOTAL PROTEIN 6.4 g/dL (6.4-8.2)
[2021-04-22 19:00] VITALS: BP 122/74
--- NOTE | 2021-04-22 19:49 | HP ---
DATE OF SERVICE: 04/22/2021 ADMIT DATE: 04/22/2021 HISTORY OF PRESENT ILLNESS: The patient is a 60-year-old male patient who presented to the Emergency Room with increased generalized weakness, falling, apparently the patient has been diagnosed with metastatic prostate cancer and also lung cancer metastatic changes as well as liver failure with ascites. He reportedly has had 2 courses of chemotherapy while he was living in [place], [place]. The patient came up here approximately a month ago to visit his parents. The patient reportedly seen here in 04/16/2021 and was diagnosed with COVID sequela. The patient has a history of COVID-19 in 2020 and had a recurrence this year since 03/1998. The patient does use the walker to ambulate, has had a history of recent falls, one on 04/06, striking his head. The patient has had varying levels of alertness to response to questions over the past several days. Reportedly, the patient was able to carry on conversation with comprehensible sounds and speech prior to 2 weeks ago. The patient presents today for evaluation because of decreased speech and responsiveness in 04/20 at 12 noon. The patient currently has limited verbal response, but can answer questions to yes and no. His mother states that he seems to understand questions and communicate to her with yes/no to questions. He currently response to request to move all extremities. The patient denies any pain. The patient denies any current fever or chills. The patient reportedly has had other falls since evaluation on 04/16. His mother had him taken to the hospital today because she was worried that he had brain injury from falls yesterday, but had no significant changes in mental status other than continuous expressive aphasia. Per paramedics, the elderly family members takes care of him, not a very good historian. Reportedly, he had the same level of consciousness as he was in 04/20 at noon. The patient recently discharged from [facility] after evaluation by Dr. Schroeder and admission under Dr. Ivan. The patient has been recommended to get an MRI during that admission, but the patient refused. The patient reportedly is visiting here from [place]. 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 The patient also has a history of prostate cancer with metastatic spread. The patient is on oral cancer medication through [facility] at [place], [place]. The patient did not receive vaccination for COVID-19. His evaluation at this facility on 04/16 showed continued positive COVID testing. He was transferred to [facility] with diagnosis of expressive aphasia, metastatic small cell lung cancer and history of falls. The patient did have findings on his chest x-ray at that time that spread to be atypical viral pneumonia. Overall, presentation was unchanged since 04/09/2021. At this time, he also had pleural effusion, which is unchanged. Appears to have diffuse metastatic disease. CT scan at that time showed no intracranial hemorrhage, herniation, or hydrocephalus. No territorial infarct. Did have finding of lacunar infarcts of unknown determined age and there was also some suspicion that he had metastatic disease causing some of the finding on the CT scan, did have sclerotic foci throughout the skull, felt to be concern for metastatic disease to the bone. The patient did receive a CT angio, which showed no evidence of carotid stenosis, occlusion or aneurysm. Did have mild plaquing at the origin of the right internal carotid artery. Right middle cerebral artery was patent. Left mid cerebral artery was patent, basilar artery without evidence of stenosis or occlusion. Records of the patient's admission at [place] and evaluation showed that, an MRI was recommended, the patient refused. When they questioned him, he answers questions, but he basically does not continue the conversation and did not complain of any pain or shortness of breath or headache. PAST MEDICAL HISTORY: Significant for non-small cell lung cancer, non-active chemotherapy, also apparently has liver disease with ascites and metastatic prostate cancer. PAST SURGICAL HISTORY: Significant for left knee surgery, Port-A-Cath placement, multiple ascites drainage. FAMILY HISTORY: Not pertinent. Both parents are in good health. SOCIAL HISTORY: The patient denied any alcohol, tobacco or street drugs. Unemployed, was living in [place] and has moved recently about a month ago to be with his parents. ALLERGIES: He has no known drug allergies. MEDICATIONS: He is currently on the following medications: He apparently was on levofloxacin 500 mg once a day. PHYSICAL EXAMINATION: GENERAL: On arrival to the Emergency Room, the patient looked pale, not jaundiced, cyanosed, no lymphadenopathy, no thyromegaly, no jugular venous distention. No lower limb edema. VITAL SIGNS: His heart rate was 87, blood pressure is 140/64, his temperature was 98.3, respiratory rate was 16 and oxygen saturation was 100% on room air. HEAD, EYES, EARS, NOSE, AND THROAT: Normocephalic, atraumatic. NECK: Supple. HEART: Showed normal first and second heart sounds. No gallop, rub or murmur. CHEST: Clear to auscultation, no crepitation or rhonchi. ABDOMEN: Slightly distended, soft, nontender. No guarding or rigidity. No organomegaly. All hernial orifice intact. Bowel sounds normal. NEUROLOGIC: He was sleepy, but arousable. All his cranial nerves intact. He seems to be able to move all extremities spontaneously at least when he is in bed. LABORATORY DATA: Showed a white cell count 4400, hemoglobin 11, hematocrit 32, MCV 104 and platelet count of 193,000. His chemistry showed a serum sodium 134, potassium 4.5, chloride 98, bicarbonate 28, anion gap of 8, BUN 23, creatinine 1.8. Estimated GFR was 38 mL per minute. His glucose 106. Lactic acid was 1.2, calcium was 9.5, magnesium was 1.9. Total bilirubin 1.6. AST, ALT, alkaline phosphatase were normal. CK was 28. Ammonia was less than 10. C-reactive protein was 15.4. Beta natriuretic peptide was 248, total protein 7, albumin was 2.9 and serum lipase was 120. His prothrombin time, INR and APTT were normal. D-dimer was high at 5.65. His urinalysis essentially unremarkable and toxic screen was positive for opiates as well as cannabinoid. His influenza A and influenza B as well as SARS-CoV-2 rapid antigen testing was negative. The patient has chest x-ray, which showed left sided pleural effusion, diffuse blastic metastatic prostate cancer. No acute infiltrate. His lower extremity venous Doppler ultrasound showed somewhat limited study, but no definite deep vein thrombosis from the femoral through the popliteal veins. Calf veins not notified, did have a CT scan of the head and cervical spine, which basically showed that there is diffuse bony metastatic disease consistent with prostate cancer. No acute C-spine fracture and left side pleural effusion. He does have also atrophy and chronic white matter changes, no intracranial hemorrhage or acute CVA noted. ASSESSMENT AND PLAN: Basically, the patient was admitted with expressive aphasia, generalized weakness and recurrent falls, dehydration, microcytic anemia, elevated D-dimer and C-reactive protein. Her creatinine is slightly elevated. Had history of small cell lung cancer metastatic stage IV and metastatic prostate cancer, stage IV with ascites. PLAN: My plan is to basically continue all his medication and I will consult physical and occupational therapy as well as the neurologist and perhaps start him on IV fluid and decide the further management accordingly. BIPIN DR: Kevin TID: [id number]
[2021-04-22] MEDS ORDERED: PROC10TA2 PO (20:54)
[2021-04-22] MEDS ORDERED: SPIR50TA4 PO (20:54)
[2021-04-22] MEDS ORDERED: [UNRECOGNIZED DRUG - CODE] PO (20:54)
[2021-04-22] MEDS ORDERED: ACET1TAB33 PO (20:54)
[2021-04-22] MEDS ORDERED: OLANZapine IM 10 MG VIAL. IM PRN (21:30)
[2021-04-22 23:00] VITALS: BP 61/49
[2021-04-22 23:10] VITALS: BP 92/64
[2021-04-23] MEDS ORDERED: IV RINGERS SOLUTION,LACTATED 500 ML IV ONE (00:30)
[2021-04-23] MEDS: IV RINGERS SOLUTION,LACTATED 1,000 ML IV SCH (02:08)
[2021-04-23 05:00] VITALS: BP 87/60
[2021-04-23 07:14] LABS: BASO % 0 % (0-3); CALCIUM 9.1 mg/dL (8.5-10.1); CREATININE 1.9 mg/dL (0.7-1.3); EOS % 0 % (0-3); GFR 36.3; HEMATOCRIT 34.4 % (39.0-53.0); HEMOGLOBIN 11.4 g/dL (13.0-17.5); LYMPH # 0.5 x10^3/uL (1.0-4.8); LYMPH % 28 % (24-48); MEAN CORPUSCULAR HEMOGLOBIN 35 pg (25-35); MEAN CORPUSCULAR HGB CONC 33 g/dL (31-37); MEAN CORPUSCULAR VOLUME 105 fL (79-100); MONO # 0.1 x10^3/uL (0.0-1.1); MONO % 7 % (0-9); NEUT # 1.1 x10^3uL (1.8-7.7); NEUT % 65 % (31-73); PLATELET COUNT 164 x10^3/uL (140-400); POTASSIUM 3.8 mmol/L (3.5-5.1); RED CELL DISTRIBUTION WIDTH 16.1 % (11.5-14.5)
[2021-04-23 07:16] LABS: WHITE BLOOD COUNT 1.7 x10^3/uL (4.0-11.0)
[2021-04-23 10:19] VITALS: BP 91/62
--- NOTE | 2021-04-23 11:10 | CONS ---
NEUROLOGY CONSULTATION REFERRING PHYSICIAN: Dr. Dee. REASON FOR CONSULTATION: Rule out stroke. HISTORY OF PRESENT ILLNESS: This is a 60-year-old male, was admitted on 04/22/2021 through Emergency Room after he presented with generalized weakness and difficulty to speak. The patient is known to this institution with positive COVID-19 diagnosed last month. He was transferred to [facility] for further evaluation. The patient is known to have prostate cancer with diffuse bone metastasis, liver metastasis and also known with non-small cell lung cancer. He is originally from [place], but he is visiting his parents. The patient received chemotherapy in the past. He was discharged recently from [facility] for further evaluation. A brain MRI was recommended, but the patient refused to have it. Currently, the patient is lying in bed and unable to provide any information. According to his family members, the patient used to answer questions by yes or no. Initial nonenhanced head CT scan revealed evidence of chronic small vessel ischemic changes without acute intracranial process as hemorrhage. The patient has had frequent falls in the past. A CT angio of the head and neck revealed no evidence of significant carotid stenosis or major occlusion of the cerebral arteries. PAST MEDICAL HISTORY: Significant for bone metastatic prostate cancer, non-small cell lung cancer and liver disease with ascites. PAST SURGICAL HISTORY: Positive for left knee surgeries and Port-A-Cath placement, history of multiple ascites drainage. FAMILY HISTORY: Noncontributory. SOCIAL HISTORY: There is no history of smoking, alcohol drinking or illicit drug use. CURRENT MEDICATIONS: Olanzapine 2.5 mg q. 4 hours p.r.n. for agitation and IV fluid. REVIEW OF SYSTEMS: A 10-point review of system performed as mentioned above in history of present illness, otherwise unremarkable. PHYSICAL EXAMINATION: GENERAL: Well-developed, well-nourished male in no acute distress. VITAL SIGNS: Blood pressure 87/60, respiratory rate is 15, pulse is 126, temperature 99, oxygen saturation is 94% on 15 liters per mask. HEENT: Normocephalic, atraumatic, otherwise unremarkable. NECK: Supple, negative for carotid bruit, lymphadenopathy, thyromegaly. LUNGS: Clear to A and P. CARDIOVASCULAR: Regular rate and rhythm, normal S1, S2. ABDOMEN: Soft, no tenderness or rigidity. Bowel sounds positive. EXTREMITIES: Negative for cyanosis, clubbing or pedal edema. NEUROLOGIC: Mental status: The patient is drowsy and unable to open eyes or respond to any external stimuli. Pupils are slightly dilated and sluggishly reactive to light. Extraocular movements are slow. There is no facial asymmetry. The patient had oxygen through a mask. Motor examination revealed flaccid upper and lower extremities. Sensory examination revealed diminished pinprick and light touch senses throughout. Deep tendon reflexes were symmetric and hypoactive with equivocal Babinski. LABORATORY DATA: CBC revealed white blood cells of 1.7, hemoglobin 11.4, hematocrit 34.4, platelet count 164,000. Chemistry revealed sodium of 138, potassium 3.8, chloride 102, CO2 of 25, BUN 28, creatinine 1.9, glucose 85, calcium 9.1. Urinalysis negative for urinary tract infection. Urine drug screen is positive for opiate. COVID rapid is negative. IMPRESSION 1. Acute encephalopathy, probably multifactorial including metabolic and hypoxia. 2. Prostate cancer with bone metastasis including the base of the skull and liver as well along with non-small cell lung cancer with ascites and left pleural effusion. 3. Dehydration and anemia. 4. Expressive aphasia, likely due to stroke. RECOMMENDATIONS: 1. Continue with current management initiated by Dr. Dee. 2. Palliative management. MARY/PADDY DR: Pam TID: [id number]
[2021-04-23 14:08] LABS: % ATYL 9 % (0-0); % BANDS 22 % (0-9); % LYMPHS 48 % (24-48); % MONOS 6 % (0-10); % MYELOS 1 % (0-0); % SEGS 14 % (35-66)
[2021-04-23 14:10] LABS: BURR CELLS FEW
[2021-04-23 14:12] LABS: PLT ESTIMATE ADEQUATE (ADEQUATE)
[2021-04-23] MEDS: MORPHINE SULFATE 30 MG/30 ML 30 ML IV PRN (15:06)
[2021-04-23] MEDS: SCOPOLAMINE 1.5MG PATCH. TD SCH (15:07)
[2021-04-23] MEDS: IV NORMAL SALINE 1,000ML 1,000 ML IV SCH (15:30)
[2021-04-23 19:00] VITALS: BP 105/70
--- NOTE | 2021-04-23 21:16 | PN ---
DATE: 04/23/2021 SUBJECTIVE: The patient is a 60-year-old male patient with stage IV prostate cancer and also lung cancer. He apparently was treated with chemotherapy in [place], [place] and according to his mother he is not interested in any further aggressive treatment and they themselves also, his father and mother are ready for him to go according to them, and therefore, he was started on comfort care, was started with morphine by RESEARCH INVESTIGATOR pump and Ativan with the aim to keep him comfortable, knowing that the nature will take its course. PHYSICAL EXAMINATION: GENERAL: When I saw him today, he was pale, but not jaundiced or cyanosed. No lymphadenopathy, no thyromegaly, no jugular venous distention. No lower limb edema. VITAL SIGNS: His heart rate was 115, blood pressure was 91/62, temperature was 97.9, respiratory rate was 18 and oxygen saturation was 99% on 10 liters of oxygen. HEAD, EYES, EARS, NOSE, AND THROAT: Showed she is normocephalic, atraumatic. NECK: Supple. HEART: Showed normal first and second heart sounds. No gallop, rub or murmur. CHEST: Clear to auscultation. No crepitation or rhonchi. ABDOMEN: Distended, soft, nontender. NEUROLOGIC: He was encephalopathic and mostly nonverbal. His intake as of yesterday was 1999, no output was recorded. LABORATORY DATA: His lab work today showed his white cell count down to 1.7, hemoglobin 11, hematocrit 34, MCV 105 and platelet count of 164,000. His chemistry this morning showed a serum sodium of 138, potassium 3.8, chloride 102, bicarbonate 25, anion gap of 11, BUN 28, creatinine 1.9. Estimated GFR was 36 mL per minute. His glucose was 85, calcium was 9.1. ASSESSMENT: 1. Stage IV prostate cancer. 2. Stage IV non-small cell lung cancer. PLAN: The patient also was admitted with altered mental status and what seemed to be expressive aphasia. The patient and his family has opted for comfort care. We will start the patient on morphine by RESEARCH INVESTIGATOR and Ativan and will discontinue everything else. BROOKLYNN DR: Kevin TID: [id number]
[2021-04-24] MEDS: MORPHINE SULFATE 30 MG/30 ML 30 ML IV PRN ×3 (02:04→12:48)
[2021-04-24] MEDS: SCOPOLAMINE 1.5MG PATCH. TD SCH (10:12)
--- NOTE | 2021-04-24 10:37 | PN ---
DATE: 04/24/2021 ATTENDING PHYSICIANS: Dr. Dee and Dr. Cutler. SUBJECTIVE: The patient is comatose and unresponsive. OBJECTIVE FINDINGS: VITAL SIGNS: Blood pressure 105/70 mmHg, pulse 110 and regular, oxygen saturation 87% on 2 liters. He is afebrile. HEENT: Head is without trauma. Pupils are reactive. Oropharynx is clear. NECK: Supple. LUNGS: Shallow respirations. There is noticeable rattle of secretions, unable to be cleared. CARDIOVASCULAR: Showed tachycardic rhythm. No gallops. ABDOMEN: Soft. EXTREMITIES: Without edema. NEUROLOGIC: He is obtunded due to medication. ASSESSMENT: 1. Stage IV non-small cell cancer of the lung with extensive metastatic disease. 2. Stage IV prostate cancer, which is a synchronous malignancy. PLAN: 1. Comfort measures 2. I spoke with family. 3. His trajectory towards is steep. is impending. Comfort measures. LINDA/BRETT DR: Pura TID: [id number]
[2021-04-24] MEDS: IV NORMAL SALINE 1,000ML 1,000 ML IV SCH (15:30)
--- NOTE | 2021-04-24 18:41 | DS ---
DATE OF DISCHARGE: 04/24/2021 ATTENDING PHYSICIAN: Dr. Dee and Dr. Cutler. FINAL DISCHARGE DIAGNOSES: 1. Acute respiratory failure. 2. Metastatic small cell cancer of the lungs. 3. Prostate carcinoma with widespread metastasis. 4. Metabolic encephalopathy. 5. Chronic obstructive pulmonary disease. HISTORY AND PHYSICAL: The patient is a 60-year-old gentleman who recently moved into [facility] to be cared for by his parents. He had been seen at [place]. He also was seen at [facility]. He has synchronous malignancies with a small cell cancer of the lung as well as prostate cancer. He has widespread metastasis. I am not aware of the previous treatment plan or tissue biopsy. He was admitted for comfort measures. Please refer Dr. Dee's note. PHYSICAL EXAMINATION: Please see the dictated note. PERTINENT LABORATORY AND X-RAY STUDIES: On the database. COURSE IN THE HOSPITAL: The patient was admitted to the medical floor. He was kept comfortable with oxygen, morphine, and Ativan. He had a progressive downward course. The family was notified. He was comfort measures given his terminal state. He was kept comfortable. I saw him briefly on the afternoon of 04/24/2021. Shortly thereafter at 1358 hours, the patient was pronounced . Family was notified. MARK DR: Pura TID: [id number]
== END 2021-04-24 16:45 | DRG 177 ==
LOC: ER 20:21 → ER HOLD 04-22 01:03 → 1 SOUTH 04-22 11:45
PROVIDERS: ADMIT Internal Medicine; ATTEND Internal Medicine
DX: U07.1 COVID-19 (principal); J96.01 Acute respiratory failure with hypoxia; G93.41 Metabolic encephalopathy; R47.01 Aphasia; C34.91 Malignant neoplasm of unspecified part of right bronchus or lung; C34.92 Malignant neoplasm of unspecified part of left bronchus or lung; R18.8 Other ascites; J90 Pleural effusion, not elsewhere classified; J44.0 Chronic obstructive pulmonary disease with (acute) lower respiratory infection; E86.0 Dehydration; D50.9 Iron deficiency anemia, unspecified; D53.9 Nutritional anemia, unspecified; C61 Malignant neoplasm of prostate; K72.90 Hepatic failure, unspecified without coma; N28.9 Disorder of kidney and ureter, unspecified; Z92.21 Personal history of antineoplastic chemotherapy; Z91.81 History of falling; Z86.73 Personal history of transient ischemic attack (TIA), and cerebral infarction without residual deficits; Z86.16 Personal history of COVID-19
CPT/HCPCS: 36415; 36600; 70450; 71045; 72125; 80048; 80053; 80076; 80307; 81001; 82140; 82550; 82803; 83605; 83690; 83735; 83880; 84443; 84484; 85007; 85025; 85027; 85379; 85610; 85730; 86140; 87040; 87428; 93005; 93970; 96360; 96361; 96372; G0480; J1650; J2060; J2270; J7120; U0003; 99285-25; J7030